=== PATIENT | female | born 1980 | race Caucasian/White ===

== ENCOUNTER → 2020-10-28 11:15 | Outpatient (REF) | payer OTHER, SELFPAY | LOC: ANHLAB 11:15 | PROVIDERS: Visit Provider Nurse Practitioner | DX: D22.62 Melanocytic nevi of left upper limb, including shoulder (principal) | CPT/HCPCS: 88305 ==

== ENCOUNTER → 2020-12-05 16:46 | Outpatient (CLI) | payer OTHER, SELFPAY ==
--- NOTE | ~2020-12-05 | MM_ITS ---
EXAMINATION: MM screening gaby BI w braxton HISTORY: Screening TECHNIQUE: Craniocaudal and mediolateral oblique 3-D tomosynthesis images were obtained and synthetic 2-D images were generated. CAD analysis was submitted and interpreted. COMPARISON: 10/22/2019 BREAST PARENCHYMAL COMPOSITION: The breasts are heterogeneously dense, which may obscure small masses . FINDINGS: There is no evidence of suspicious mass, calcification, or architectural distortion to sugg est malignancy in either breast. There has been no suspicious interval change. IMPRESSION: 1. No mammographic evidence of malignancy. 2. Recommend routine screening mammography in one year. BI-RADS Category 1: Negative Reviewed, dictated and finalized at location A. 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
== END ==
PROVIDERS: Visit Provider Student in an Organized Health Care Education/Training Program
DX: Z12.31 Encounter for screening mammogram for malignant neoplasm of breast (principal)
CPT/HCPCS: 77063; 77067

== ENCOUNTER → 2021-12-07 15:28 | Outpatient (CLI) | payer OTHER, SELFPAY ==
--- NOTE | ~2021-12-07 | MM_ITS ---
EXAMINATION: MM screening gaby BI w braxton HISTORY: Screening TECHNIQUE: Craniocaudal and mediolateral oblique 3-D tomosynthesis images were obtained and synthetic 2-D images were generated. CAD analysis was submitted and interpreted. COMPARISON: Comparison to multiple prior studies sequentially, with oldest reviewed study dated 09/29. BREAST PARENCHYMAL COMPOSITION: The breasts are heterogenously dense, which may obscure small masses FINDINGS: There is no evidence of suspicious mass, calcification, or architectural distortion to sugg est malignancy in either breast. There has been no suspicious interval change. IMPRESSION: 1. No mammographic evidence of malignancy. 2. Recommend routine screening mammography in one year. BI-RADS Category 1: Negative Reviewed, dictated and finalized at location A. 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
== END ==
PROVIDERS: PCP Student in an Organized Health Care Education/Training Program; Visit Provider Student in an Organized Health Care Education/Training Program
DX: Z12.31 Encounter for screening mammogram for malignant neoplasm of breast (principal)
CPT/HCPCS: 77063; 77067

== ENCOUNTER → 2023-05-24 07:51 | Outpatient (CLI) | payer OTHER, SELFPAY ==
--- NOTE | ~2023-05-24 | US_ITS ---
Thyroid ultrasound. Clinical History: Nontoxic goiter Findings: Real-time sonography of the thyroid gland was performed. The right lobe measures 4.7 x 1.3 x 1.5 cm. The left lobe measures 4.8 x 1.2 x 1.3 cm. The isthmus is 2 mm in AP diameter. There is a 1.4 x 0.9 x 0.5 cm hypoechoic nodule at the left mid to lower pole. Impression: 1.4 cm TR-4 left thyroid lobe nodule. Given size, consider one-year follow-up ultrasound. Reviewed, dictated and finalized at location . Impression: 1.4 cm TR-4 left thyroid lobe nodule. Given size, consider one-year follow-up u ltrasound.
== END ==
PROVIDERS: PCP Registered Nurse; Visit Provider Registered Nurse
DX: E04.9 Nontoxic goiter, unspecified (principal)
CPT/HCPCS: 76536

== ENCOUNTER → 2023-08-02 12:31 | Outpatient (CLI) | payer OTHER, SELFPAY ==
--- NOTE | ~2023-08-02 | MM_ITS ---
EXAMINATION: MM screening gaby BI w braxton HISTORY: Screening mammogram TECHNIQUE: Craniocaudal and mediolateral oblique 3-D tomosynthesis images were obtained and synthetic 2-D images were generated. Bilateral rotated lateral CC views. CAD analysis was submitted and interp reted. COMPARISON: 12/07/2021, 12/05/2020, 10/22/2019 bilateral screening mammogram examinations BREAST PARENCHYMAL COMPOSITION: The breasts are heterogeneously dense, which may obscure small masses . FINDINGS: There is no evidence of suspicious mass, calcification, or architectural distortion to sugg est malignancy in either breast. There has been no suspicious interval change. IMPRESSION: 1. No mammographic evidence of malignancy. 2. Recommend routine screening mammography in one year. BI-RADS Category 1: Negative Reviewed, dictated and finalized at location A.
== END ==
PROVIDERS: PCP Registered Nurse; Visit Provider Registered Nurse
DX: Z12.31 Encounter for screening mammogram for malignant neoplasm of breast (principal)
CPT/HCPCS: 77063; 77067

== ENCOUNTER 2024-07-09 14:54 | Outpatient (CLI) | payer BC, SELFPAY ==
--- NOTE | ~2024-07-09 | US_ITS ---
EXAMINATION: US thyroid DATE: 07/09/2024 15:08 INDICATION: Nontoxic single thyroid nodule. TECHNIQUE: Multiple ultrasound images of the thyroid were obtained. COMPARISON: Ultrasound thyroid 05/24/2023 FINDINGS: The right thyroid lobe measures 4.7 x 1.2 x 1.4 cm. The left thyroid lobe measures 4.9 x 1.3 x 1.4 c m. In the left thyroid lobe, there is a 17 mm solid, hypoechoic, wider than tall nodule with smooth margin without echogenic foci (TI-RADS TR4), increased from 14 mm on 05/24/2023. IMPRESSION: 1. Thyroid nodule. Ultrasound-guided fine-needle aspiration is recommended. Reviewed, dictated and finalized at location A.
== END 2024-07-09 14:55 ==
LOC: MICIMG 14:56
PROVIDERS: PCP Nurse Practitioner Obstetrics & Gynecology; Visit Provider Physician Assistant Medical
DX: E04.1 Nontoxic single thyroid nodule (principal)
CPT/HCPCS: 76536

== ENCOUNTER 2024-09-10 12:32 | Outpatient (CLI) | payer BC, SELFPAY ==
--- NOTE | ~2024-09-10 | US_ITS ---
EXAMINATION: US FNA w image guidance DATE: 09/10/2024 13:47 INDICATION: Enlarging left thyroid nodule TECHNIQUE: A time-out was performed to verify the patient's name, date of , and procedure to be performed . The procedure and its benefits and risks were discussed with the patient. Risks specifically discus sed included bleeding and infection. The patient understood the risks and agreed to proceed. The neck was prepped and draped in the usual sterile manner. 3 mL 1% lidocaine was used for local anesthesia . 7 passes were made with a 25G needle into the lesion. Appropriate needle location was documented with continuous sonographic guidance. A sterile bandage was applied. There were no immediate compli cations. FINDINGS: Grayscale ultrasound images demonstrate biopsy needles advanced into the solid hypoechoic component o f a mixed solid and cystic left thyroid nodule. IMPRESSION: 1. Successful ultrasound-guided fine needle aspiration of the solid component of the previously iden tified left thyroid nodule which on the current study appears mixed solid and cystic. Reviewed, dictated and finalized at location A. IMPRESSION: 1. Successful ultrasound-guided fine needle aspiration of the solid component of the previously identified left thyroid nodule which on the current study thom ears mixed solid and cystic.
== END 2024-09-10 12:33 | disposition home or self-care (01) ==
LOC: ANHIMG 12:34
PROVIDERS: PCP Physician Assistant Medical; Visit Provider Physician Assistant Medical
DX: E04.1 Nontoxic single thyroid nodule (principal)
CPT/HCPCS: 10005; 88172; 88173; 88177; 88305

== ENCOUNTER 2024-09-13 07:49 | Outpatient (CLI) | payer BC, SELFPAY ==
--- NOTE | ~2024-09-13 | MM_ITS ---
EXAMINATION: MM screening gaby BI w braxton HISTORY: Screening TECHNIQUE: Craniocaudal and mediolateral oblique 3-D tomosynthesis images were obtained and synthetic 2-D images were generated. CAD analysis was submitted and interpreted. COMPARISON: Comparison to multiple prior studies sequentially, with oldest reviewed study dated 09/29. BREAST PARENCHYMAL COMPOSITION: Dense: The breasts are heterogeneously dense, which may obscure small masses FINDINGS: There is no evidence of suspicious mass, calcification, or architectural distortion to sugg est malignancy in either breast. There has been no suspicious interval change. IMPRESSION: 1. No mammographic evidence of malignancy. 2. Recommend routine screening mammography in one year. BI-RADS Category 1: Negative Reviewed, dictated and finalized at location B.
== END 2024-09-13 07:50 | disposition home or self-care (01) ==
PROVIDERS: PCP Physician Assistant Medical; Visit Provider Nurse Practitioner Obstetrics & Gynecology
DX: Z12.31 Encounter for screening mammogram for malignant neoplasm of breast (principal)
CPT/HCPCS: 77063; 77067

== ENCOUNTER 2025-05-09 10:25 | Outpatient (CLI) | payer BC, SELFPAY ==
--- NOTE | ~2025-05-09 | US_ITS ---
US thyroid INDICATION: Left thyroid nodule TECHNIQUE: Real-time sonographic images of the thyroid gland were obtained. COMPARISON: No prior studies for comparison. FINDINGS: The right thyroid lobe measures 4.3 x 1 x 1.4 cm. The left thyroid lobe measures 4.5 x 0.9 x 1.2 cm. There is normal echotexture and echogenicity throughout the thyroid gland. In the left thy roid lobe there is a cyst measuring 1.6 x 0.8 x 0.6 cm. No suspicious solid masses are identified to suggest malignancy. Normal vascular flow is present. IMPRESSION: 1. Benign 1.6 cm cyst of the left thyroid lobe. No suspicious masses in either lobe of the thyroid g land are identified which meet criteria for biopsy. Reviewed, dictated and finalized at location [] IMPRESSION: 1. Benign 1.6 cm cyst of the left thyroid lobe. No suspicious masses in either lobe of the thyroid gland are identified which meet criteria for biopsy.
== END 2025-05-09 10:26 | disposition home or self-care (01) ==
LOC: MICIMG 10:26
PROVIDERS: PCP Physician Assistant Medical; Visit Provider Internal Medicine Endocrinology, Diabetes & Metabolism
DX: E04.1 Nontoxic single thyroid nodule (principal)
CPT/HCPCS: 76536